=== PATIENT | male | born 1975 | race Hispanic/Latino ===

== ENCOUNTER → 2019-02-08 | Day surgery (SDC) | payer OTHER ==
[~2019-02-08] MED LIST: BENZONATATE100 MG PO; COLESTID1 G PO; COLESTIPOL HCL1 GM PO; DICYCLOMINE HCL10 MG PO; GLIMEPIRIDE2 MG PO; HYOSCYAMINE 0.125 MG TAB ONE; JARDIANCE PO; KETAMINE HCL INJ 50 MG/ML 10 ML VIAL ONE; LIDOCAINE HCL 2% LOCAL INJ 5 ML SDV VIAL INJ ONE; LORATADINE10 MG PO; METFORMIN HCL500 M1 PO; MIDAZOLAM HCL 2 MG/2 ML VIAL ONE; NORVASC5 MG PO; PROPOFOL IV EMULSION 10 MG/ML 50 ML VIAL ONE
--- OUTSIDE RECORDS SUMMARY | 2019-02-08 11:19 | XMS REPORT | Clinical Summary ---
Author Author [facility] Address Unknown Phone Unavailable Care Team Providers Care Clinical Informatics Director Name Role Phone Da Burrows PCP Allergies No Known Allergies Medications End Date Status Medication Sig Dispensed Refills Start Date Active glimepiride (AMARYL) 2 MG Take 2 mg by 0 tablet mouth every morning before breakfast. Active metFORMIN (GLUCOPHAGE) Take 500 mg 0 500 MG tablet by mouth 2 (two) times daily with breakfast and dinner. Active azithromycin (ZITHROMAX) Take 250 mg 0 250 MG tablet by mouth daily Take by mouth as directed. . Active omeprazole (PRILOSEC) 40 Take 40 mg by 0 MG capsule mouth daily. Active Problems Problem Noted Date Incisional hernia 03/18/2016 Hernia 03/18/2016 Immunizations Name Dates Previously Given Next Due Influenza Three-TIV PF 5+ 03/21/2016 YR Pneumococcal 03/21/2016 Polysaccharide (Pneumovax) Social History Date Tobacco Use Types Packs/Day Years Used Quit: 10/24/2015 Former Smoker 0.25 1 Tobacco Cessation: Counseling Given: Yes Alcohol Use Drinks/Week oz/Week Comments Yes socially 12 pack every month Sex Assigned at Date Recorded Not on file Industry Job Start Date Occupation Not on file Not on file Not on file Travel End Travel History Travel Start No recent travel history available. 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 [id number] / N/A / [id number] [employer] Strattice [id number] [id number] - Tissue N/A: Abdomen [employer] Sn/A Graft/Subs Implanted: Qty: 1 on 03/18/2016 by Imer Prieto III, MD Results Not on fileafter 02/07/2018 Insurance Payer Benefit Subscriber ID Type Phone Address Plan / Group [employer] [facility] [employer] [employer] x[place] HMO/POS CARE POS SELECT CHOICE Advance Directives For more information, please contact: [facility] [address] [place] [address] Date Inactivated Comments Code Status Date Activated 03/18/2016 4:17 PM Full Code 03/18/2016 6:47 AM This code status was determined by: Patient
[2019-02-08 16:20] VITALS: BP 117/77
--- NOTE | 2019-02-08 22:59 | Operative Report ---
DATE OF PROCEDURE: 02/08/2019 SURGEON: Neno Chan MD PROCEDURE: Esophagogastroduodenoscopy with biopsies and colonoscopy with polypectomy and biopsies. INDICATIONS FOR EGD: Upper abdominal pain, bloating. INDICATIONS FOR COLONOSCOPY: Chronic diarrhea. MEDICATIONS: The patient was done under MAC, please see anesthesiologist's note. PROCEDURE IN DETAIL: With the patient in left lateral decubitus position, a flexible fiberoptic Olympus gastroscope was introduced into the esophagus under direct visualization without any difficulty. There was some patchy erythema noted in the distal esophagus. The scope was then advanced with ease into the stomach. Mucosa overlying the antrum revealed some patchy atrophic changes and biopsies were obtained. Mucosa overlying the body revealed diffuse erythema and low-grade to moderate edema and biopsies were obtained and sent to stain for H. pylori. The pylorus was of normal contour and shape, it was intubated with ease and the scope was advanced all the way to the second portion of the duodenum. Biopsies were obtained from the second portion to rule out sprue. A nodular fold was noted in the distal duodenal bulb and that was biopsied. The scope was then withdrawn back into the stomach and retroflexed mucosa overlying the fundus appeared to be within normal limits. The patient appears to be status post Miguel fundoplication and that appeared intact. The scope was then straightened out, it was subsequently withdrawn. The patient tolerated the procedure well. IMPRESSION: 1. Distal esophagitis. 2. Status post Miguel fundoplication, intact. 3. Gastritis, biopsied. Biopsies sent to stain for Helicobacter pylori. 4. Nodular fold, distal bulb biopsied. 5. Rule out sprue. PLAN: Follow up histology. Initiate Protonix 40 mg one p.o. q.a.m. a.c. The patient was then turned around and after adequate lubrication of the anal canal, a flexible fiberoptic Olympus colonoscope was inserted into the rectum with ease and advanced all the way to the cecum. Prep overall suboptimal, but visualization was fair. Mucosa overlying the cecum was grossly unremarkable. The ileocecal valve was intubated and the scope was advanced into the terminal ileum. Biopsies were obtained. The scope was then withdrawn back into the colon. It was then withdrawn slowly. Mucosa overlying the ascending colon grossly appeared to be within normal limits. One polyp was hot biopsied from the transverse colon. The mucosa overlying the left colon and the rectum revealed some patchy mild inflammatory changes and random biopsies were obtained. One polyp was hot biopsied from the rectum. The scope was then retroflexed into the distal rectum and small internal hemorrhoids were noted, none of which was actively bleeding. The scope was then straightened out, it was subsequently withdrawn after securing an adequate stool specimen that was sent for the appropriate stool studies. The patient tolerated the procedure well. IMPRESSION: 1. Transverse colon polyp, hot biopsied. 2. Mild patchy left-sided colitis. 3. Proctitis, mild. 4. Rectal polyp, hot biopsied. 5. Internal hemorrhoids, none actively bleeding. PLAN: Follow up histology. Follow up stool studies. Initiate Bentyl 10 mg one p.o. t.i.d. and Visbiome 1 p.o. b.i.d. the patient might benefit from a followup colonoscopy in 5 years. Neno Chan MD [facility] [place] /[id number] cc: Da Burrows MD
[2019-02-09 15:02] LABS: C DIFFICILE TOXIN A&B AMP PROB NEGATIVE (NEGATIVE)
[2019-02-09 15:05] LABS: WBC,FECAL (FECAL LACTOFERRIN) NEGATIVE (NEGATIVE)
== END | disposition home or self-care (01) ==
LOC: OR 11:17
PROVIDERS: ATTEND Internal Medicine Gastroenterology
DX: K29.60 Other gastritis without bleeding (principal); D12.3 Benign neoplasm of transverse colon; K62.1 Rectal polyp; K29.50 Unspecified chronic gastritis without bleeding; K51.50 Left sided colitis without complications; K21.9 Gastro-esophageal reflux disease without esophagitis; K20.9 Esophagitis, unspecified; K31.89 Other diseases of stomach and duodenum; K62.89 Other specified diseases of anus and rectum; K64.8 Other hemorrhoids; E11.9 Type 2 diabetes mellitus without complications; I10 Essential (primary) hypertension; K75.81 Nonalcoholic steatohepatitis (NASH); G47.33 Obstructive sleep apnea (adult) (pediatric); E66.01 Morbid (severe) obesity due to excess calories; Z01.810 Encounter for preprocedural cardiovascular examination; Z79.84 Long term (current) use of oral hypoglycemic drugs; Z68.41 Body mass index [BMI] 40.0-44.9, adult; Z98.890 Other specified postprocedural states; Z87.891 Personal history of nicotine dependence
CPT/HCPCS: 36415; 43239; 45380; 45384; 82948; 83630; 83993; 87045; 87177; 87328; 87493; 93005; J2001; J2250; J2704; 45378

== ENCOUNTER → 2024-09-12 | Outpatient (REF) | payer OTHER ==
[~2024-09-12] MED LIST changes: +AMLODIPINE BESYL5 MG PO; +ATORVASTATIN CA10 MG PO; +ATORVASTATIN CA20 MG PO; +B12-FOLIC ACID1 EACH PO; +CALCIUM ACETAT667 MG PO; -HYOSCYAMINE 0.125 MG TAB ONE; +JARDIANCE25 MG PO; -KETAMINE HCL INJ 50 MG/ML 10 ML VIAL ONE; -LIDOCAINE HCL 2% LOCAL INJ 5 ML SDV VIAL INJ ONE; +LISINOPRIL10 MG PO; +METFORMIN HCL500 MG PO; +METFORMIN HCL850 MG PO; -MIDAZOLAM HCL 2 MG/2 ML VIAL ONE; +MULTI-VITAMIN1 EACH PO; +OMEPRAZOLE40 MG PO; -PROPOFOL IV EMULSION 10 MG/ML 50 ML VIAL ONE
== END ==
LOC: US 09:23
PROVIDERS: ATTEND Nurse Practitioner
DX: K75.81 Nonalcoholic steatohepatitis (NASH) (principal)
CPT/HCPCS: 76700